=== PATIENT | female | born 1965 | race Caucasian/White ===

== ENCOUNTER → 2017-01-23 | Outpatient (CLI) | payer MEDICAID ==
[~2017-01-23] MED LIST: BP PILL PO; CLONIDINE PO; DIOVAN HCT 1601 EACH PO; FORTAMET1000 MG/B1 PO; MUCINEX DM1 TAB.SR . PO; RHINOCORT AQUA8.6 GM; SYMBICORT 16010.2 GM IH
--- NOTE | ~2017-01-23 | CR43 ---
[facility] A Service of [facility] & [facility] RADIOLOGY TEXT RESULTS PATIENT: DAVID JURADO LOCATION: [facility] : 69 UNIT #: [id number] AGE: [address]: Christian Sanchez MD SEX: F ORDER DR: [id number] [facility] [address] [place], [place] [address] [id number] O MR#: [id number] Acc #: [id number] NAME: DAVID JURADO. : 1965 SEX: F STUDY DATE/TIME: 01/23/2017 8:08 UNIT: [facility] ROOM: STUDY DESCRIPTION: CR Barium Enema W Air Attending Physician: Christian Sanchez M.D. Referring Physician: Christian Sanchez M.D. Ordering Physician: Christian Sanchez M.D. MEDICAL IMAGING REPORT This report is preliminary unless electronic signature is present EXAM Barium enema HISTORY Ms. Jurado had a colonoscopy performed on January 14, 2017. She does have a family history of a brother who was diagnosed with colon cancer at 47. PROCEDURE Patient was tipped by the technologist and air-contrast material was administered per rectum, followed by air column. Overhead and fluoroscopic images were obtained. This was a technically limited examination due to the patient's relative lack of mobility and body habitus. The patient's rectum appeared unremarkable, as did the sigmoid colon, with no evidence of stricture or mass lesion. There is somewhat limited visualization of the splenic flexure, although it is better seen on the overhead images and appeared unremarkable. The transverse colon was also unremarkable, as was the hepatic flexure. No obvious stricture or mass lesion of the cecum was identified, although assessment of mucosa was really not possible due to limited distension with air, even on post-evacuation films. A total of 13 fluoroscopic images were obtained and 15 overhead images were obtained. Total fluoroscopy time was 1.5 minutes. IMPRESSION 1. This is a technically limited examination due to the patient's body habitus and limited mobility. The majority of the colon is unremarkable in appearance with no evidence of stricture or mass lesion. No polypoid lesions were seen. No diverticula were identified. Patient did have contrast material within the cecum and I could identify the ileocecal valve, however there was really a very limited distension with air, even on post-evacuation films which precludes evaluation of the mucosa for STS. [facility] A Service of [facility] & [facility] RADIOLOGY TEXT RESULTS PATIENT: DAVID JURADO LOCATION: [facility] : 69 UNIT #: [id number] AGE: [address]: Christian Sanchez MD SEX: F ORDER DR: small lesions. Certainly, no obvious abnormality of the cecum was seen. Patient was noted to have some colonic redundancy, which was also described her colonoscopy. 2. Patient was incidentally noted have gallstones on the crust sorter image. Dictated by... Jie Huitron M.D. THIS IS AN ELECTRONICALLY VERIFIED REPORT Jie Huitron M.D. at 01/24/2017 4:57 PM AFF/pcl TD: 01/23/2017 18:38 JOB #: [id number] MEDICAL IMAGING REPORT Page 1 of 1 COPY
== END | disposition home or self-care (01) ==
LOC: CRAD 07:21
DX: Z12.11 Encounter for screening for malignant neoplasm of colon (principal); Z80.0 Family history of malignant neoplasm of digestive organs
CPT/HCPCS: 74280